=== PATIENT | male | born 1965 | race Caucasian/White ===

== ENCOUNTER 2019-06-13 11:42 | Inpatient (IN) | payer BC ==
[~2019-06-13 11:42] MED LIST: Lidocaine 1% PF 5 ML VIAL ONE; PROPOFOL 200 MG/20 ML VIAL ONE
[2019-06-13 12:23] VITALS: BMI 31.7
[2019-06-13] MEDS: Dextrose 5 % And 0.9 % NaCl 1,000 ML IV SCH ×2 (12:40→22:38)
[2019-06-13] MEDS ORDERED: Acetaminophen 500 MG TAB PO PRN (13:47)
[2019-06-13] MEDS ORDERED: Promethazine HCl 25 MG/ML VIAL IM PRN (15:53)
[2019-06-13] MEDS ORDERED: Promethazine HCl 25 MG/ML VIAL SLOW IVP PRN (15:53)
[2019-06-13] MEDS ORDERED: PACU-Morphine 4MG/ML VIAL SLOW IVP PRN (15:53)
[2019-06-13] MEDS ORDERED: Meperidine HCl/PF 25 MG/ML VIAL SLOW IVP PRN (15:53)
[2019-06-13] MEDS ORDERED: Ondansetron HCl/PF 4 MG/2 ML Vial IVP PRN (15:53)
--- NOTE | 2019-06-13 17:03 | PDOC.EVN ---
Event Note - Event Note Event Note: Clarified with Dr. Briseno. Patient's home meds are Crestor 20mg, metoprolol 50 mg q hs and amlodipine 5 mg q am.
[2019-06-13] MEDS: Pantoprazole 40 MG VIAL IVP SCH (19:56)
--- NOTE | 2019-06-13 22:20 | HP ---
CHIEF COMPLAINT: Melena. HISTORY OF PRESENT ILLNESS: This patient is a 53-year-old male with a history of kidney cancer requiring a left nephrectomy and a cryoprobe of a mass in the right kidney. The patient has subsequently been stable. He was in his usual state of health. He has been at home being fairly active around the house other than some mild generalized fatigue. Over the past week or so, he has been experiencing some black tarry stools associated with some abdominal cramping and some slight discomfort across the upper abdomen. He has had no other abdominal pain. No fevers or chills. No hematemesis. He did have one episode today of coughing with a small amount of blood-tinged sputum, but he has had no other hemoptysis or nasal or sinus congestion or drainage. REVIEW OF SYSTEMS: He has had no fevers or chills. He has been eating and drinking and voiding normally. All other systems reviewed and were negative except for those things mentioned in the history of present illness. PAST MEDICAL HISTORY: Notable for the renal cancer. PAST SURGICAL HISTORY: 1. Radical left nephrectomy. 2. Right renal mass cryoprobe. 3. Herniorrhaphy. FAMILY HISTORY: Father had some heart disease. Mother is healthy. SOCIAL HISTORY: Nonsmoker, nondrinker, nondrug user. He is . He is full code, and his would be his surrogate decision maker should that become necessary. CURRENT MEDICATIONS: The patient does not know the name of his medications. The computer system interface with the pharmacy indicates he has had a prescription for amlodipine 5 mg one p.o. daily. He also says he takes an additional blood pressure medicine at night that is more of a diuretic, and he says he is supposed to be on a cholesterol medicine, but he has not been taking it. ALLERGIES: NONE. PHYSICAL EXAMINATION: VITAL SIGNS: Temperature is 98.0, pulse 90, respirations 18, O2 saturation 96% on room air, BP 159/100. GENERAL APPEARANCE: Age-appropriate male, slightly obese, in no distress. He is awake and alert. HEENT: PERRL. He has no OP lesions. No nasal lesions. No evidence of any pharyngeal bleeding. NECK: Supple and symmetric. HEART: Regular rate and rhythm without murmurs, gallops, or rubs. LUNGS: Clear to auscultation bilaterally with good chest wall expansion and air exchange. ABDOMEN: Soft and nondistended. Positive bowel sounds, which are normoactive. No masses. No organomegaly. There is tenderness to palpation in the epigastrium and left upper abdomen with no significant guarding or rebound. EXTREMITIES: No cyanosis, clubbing, or edema. He does have some bronze discoloration over the medial lower extremities around the ankles. PSYCH: Normal affect and behavior. NEURO: No focal deficits. Cranial nerves are intact. Cognition is intact. LABORATORY DATA: White count 10.8, hemoglobin 12.1. Chemistries are normal on the CMP. IMPRESSION AND PLAN: 1. Upper gastrointestinal bleed. The patient presented to Dr. Briseno's office today with evidence of melena. He was referred to the GI Clinic. However, at that point, it was felt the patient would benefit from going forward with endoscopy and further workup, so he was placed on observation status. The case has been discussed with Dr. Russell. We will continue to hydrate and keep him n.p.o., give IV PPIs, and anticipate endoscopy this afternoon and to repeat lab values in the morning regardless of the findings to ensure stability of the hemoglobin. 2. Hypertension. We will continue with the patient's usual home medications, reach out to Dr. Briseno in order to more clearly define his current medications. 3. History of renal cancer, stable renal function at this time. Job ID: [id number]
--- NOTE | 2019-06-13 22:48 | OP ---
DATE OF PROCEDURE: 06/13/2019 PROCEDURE PERFORMED: Esophagogastroduodenoscopy with control of hemorrhage and biopsy. PREOPERATIVE DIAGNOSES: Gastrointestinal bleed with melena and anemia of acute blood loss. DESCRIPTION OF PROCEDURE: Informed consent was obtained from the patient. He was sedated with total intravenous anesthesia. The bite block was placed, and the endoscope was advanced easily to the second portion of the duodenum and retroflexion was performed in the stomach. The esophagus had grade C erosive esophagitis in the distal esophagus. This was about 50% to 75% circumferential. There was a visible red protruding vessel in the base of distal esophageal ulcer. This was cauterized with a 10-Gabonese gold probe with good hemostasis. The edge of the esophageal ulceration was biopsied. The stomach had a 3 cm hiatal hernia. There was erythematous gastritis in the antrum, which was biopsied. The pylorus and first and second portions of the duodenum were normal. IMPRESSION: 1. Grade C erosive esophagitis with a visible red protruding vessel in the base of the distal esophageal ulcer, cauterized with a 10-Gabonese gold probe with good hemostasis. 2. 3 cm hiatal hernia. 3. Antral erythematous gastritis, biopsied to rule out Helicobacter pylori. RECOMMENDATIONS: 1. Proton pump inhibitor IV. 2. If his hemoglobin is stable tomorrow without signs of overt bleeding, then we can advance his diet and change to oral proton pump inhibitor and possibly discharge home tomorrow afternoon. 3. Await histopathology. Job ID: [id number]
[2019-06-14 05:58] LABS: #Eosinphils 0.3 thou/uL (0.0-0.7); #Lymphocytes 1.5 thou/uL (1.20-3.40); #Monocytes 0.4 thou/uL (0.11-0.59); #Neutrophils 4.2 thou/uL (1.40-6.50); %Basophils 0.8 % (0.0-1.0); %Eosinophils 4.4 % (0.0-10.0); %Lymphocytes 22.9 % (21.0-51.0); %Monocytes 5.7 % (0.0-10.0); %Neutrophils 66.3 % (42.0-75.0); Hemoglobin 10.5 g/dL (14.0-18.0); Mean Corpuscular HGB CONC 31.6 g/dL (32.0-36.0); Mean Corpuscular Hemoglobin 28.3 pg (27.0-31.0); Mean Corpuscular Volume 89.6 fL (78.0-98.0); Mean Platelet Volume 7.3 fL (7.4-10.4); Platelet Count 247 thou/uL (130-400); RBC Distribution Width 14.1 % (11.5-14.5); Red Blood Cell (RBC) Count 3.72 mill/uL (4.70-6.10); White Blood Cell (WBC) Count 6.3 thou/uL (4.8-10.8)
[2019-06-14 07:05] VITALS: BP 151/85; TEMP 98.3
[2019-06-14] MEDS: Dextrose 5 % And 0.9 % NaCl 1,000 ML IV SCH ×2 (07:53→16:55)
[2019-06-14] MEDS: Pantoprazole 40 MG VIAL IVP SCH (07:53)
[2019-06-14] MEDS ORDERED: Amlodipine 5 MG TAB PO SCH (09:00)
--- NOTE | 2019-06-14 09:15 | CON ---
DATE OF CONSULTATION: The patient was seen in the office today, admitted for GI bleed. HISTORY OF PRESENT ILLNESS: Mr. Haji was seen today in Dr. Briseno's office with a complaint of black stools for 1 to 2 weeks, and had labs done, which were pending when we saw him in the office and came to the office to see me. There, he noted upper abdominal pain diffusely for about a week or a little bit more. He has had dark stools over that time as well. He had three bowel movements today, two of which were runny, one of which was just soft, all were black. In the last several days, he had 3 to 4 bowel movements a day, which is normal for him. He feels little bit fatigued, but has not had any palpitations or syncope or presyncopal episodes. He has had no nausea or vomiting. His appetite has been down. He did have a cough right when he got up this morning, coughed up a little bit of blood just once. He has not been short of breath or coughed any further. He has had no viral symptoms or URI symptoms or respiratory symptoms otherwise. His past medical history is significant for the fact he had a renal cancer removed, it looks like about 5 years ago, somewhere between 2012 and 2014 at [facility], he does not remember the exact date. Apparently, this was a complete left nephrectomy, cryoablation on the right. He had been followed by Dr. Feli Vann at [facility] with x-rays. His last CAT scan was last year, which showed no evidence of disease. He was supposed to have one this year, but with COVID he has not yet. He has taken Nexium and Zegerid in the past for reflux, but does not take it regularly, now he has Zegerid and will take maybe two times a week. He uses Tylenol occasionally. He does not use NSAIDs. He denies any weight loss or appetite change. PAST MEDICAL HISTORY: Reflux, hypertension, hyperlipidemia, renal cell carcinoma removed, complete nephrectomy in left, right cryotherapy. PAST SURGICAL HISTORY: Left nephrectomy, right kidney with cryo, umbilical hernia repair. Previous diagnostic studies, apparently he had a colonoscopy at [facility] about five years ago. He reports he did have some polyps. He reports he had an EGD which was normal. I had done EGD on him in 2006 and 2004 for reflux, which were normal. MEDICATIONS AT HOME: Lipitor, lisinopril, Zegerid. ALLERGIES: NONE KNOWN. SOCIAL HISTORY: He does not drink. Does not smoke. 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 FAMILY HISTORY: Negative for colon cancer or liver disease. REVIEW OF SYSTEMS: Positive for fatigue, abdominal discomfort, change in bowel function, diarrhea, melena, hemoptysis. PHYSICAL EXAMINATION: VITAL SIGNS: Pulse 68, blood pressure 166/88, weight 208, temperature 99.2. GENERAL: He is resting comfortably in the office. He is in no distress. HEENT: His conjunctivae and sclerae are clear. Oropharynx without lesions. NECK: Supple without any nodes. LUNGS: Clear. HEART: Regular rate and rhythm without clicks or murmurs. ABDOMEN: Soft. There is a pretty well-healed scar with no evidence of hernias in the left flank, and on the right side, there is an umbilical scar as well, no evidence of hernia. There is no evidence of inguinal adenopathy or supra or infraclavicular adenopathy. EXTREMITIES: Reveal no clubbing, cyanosis, or edema. SKIN: Warm and dry. RECTAL: Reveals melena. ASSESSMENT: 1. General abdominal pain for a week, melena for a week or a little bit more. 2. Hemoptysis today. 3. Low-grade temperature at 99. PLAN: Admission to the hospital. IV PPIs. GI evaluation for endoscopy probably in the next 24 hours. Job ID: [id number]
[2019-06-14 11:26] LABS: Hemoglobin 10.9 g/dL (14.0-18.0)
--- NOTE | 2019-06-14 16:22 | PRG ---
DATE OF SERVICE: 06/14/2019 SUBJECTIVE: Mr. Haji is tolerating a heart healthy diet well. He has no abdominal pain or nausea or vomiting. He has had no bowel movements since the endoscopy yesterday. OBJECTIVE: VITAL SIGNS: Temperature is 98.3, pulse 80, blood pressure 151/85. GENERAL: He is in no acute distress. Alert and oriented x3. LUNGS: Clear to auscultation bilaterally. HEART: Regular rate and rhythm without murmur. ABDOMEN: Soft, nontender, and nondistended. Bowel sounds are present. EXTREMITIES: No lower extremity edema. LABORATORY DATA: Hemoglobin is 10.9 today, down from 12.1 yesterday. IMPRESSION: 1. Gastrointestinal bleed secondary to grade C severe erosive esophagitis. He had a visible vessel in the base of an ulcer in the esophagus, which was cauterized. 2. Antral mild gastritis, biopsied to rule out Helicobacter pylori. RECOMMENDATIONS: 1. Proton pump inhibitor daily. 2. Avoid NSAIDs. 3. Await histopathology. 4. Follow up with Dr. Childs in the office in a month. Job ID: [id number]
--- NOTE | 2019-06-15 00:54 | DIS ---
DATE OF ADMISSION: 06/13/2019 DATE OF DISCHARGE: 06/14/2019 Mr. Haji is a 53-year-old male with a medical history of renal cell carcinoma, status post left nephrectomy, who presented for generalized fatigue and melena. He was diagnosed with grade C erosive esophagitis with a visible vessel, hiatal hernia, and antral gastritis. Gastroenterology was consulted and did an EGD in which the aforementioned findings were discovered. The esophageal protruding vessel was cauterized. The patient's hemoglobin remained stable on the day of discharge and he was feeling well, that was advanced, and the patient was discharged hemodynamically stable with no complaints. PHYSICAL EXAMINATION: VITAL SIGNS: Blood pressure was 151/85, pulse was 80, respiratory rate 20, 97% on room air, and temperature 98.3 Fahrenheit. GENERAL: Lying comfortably in bed, in no apparent distress. HEENT: Normocephalic, atraumatic. PERRL. HEART: Regular rate and rhythm. No murmurs, gallops, or rubs. LUNGS: Clear to auscultation bilaterally. No rales, rhonchi, or wheezing. No tachypnea. ABDOMEN: Soft, nondistended, nontender. Normal bowel sounds. EXTREMITIES: No edema. PSYCHIATRIC: Appropriate mood and affect. Alert and oriented x3. MEDICATIONS: New medications: Pantoprazole 40 mg p.o. b.i.d. Continued medications: 1. Amlodipine. 2. Aspirin. 3. Simvastatin. 4. Metoprolol succinate. Modified medications: None. The patient was scheduled to follow up with his primary care physician. EGD biopsy results are pending. Job ID: [id number]
== END 2019-06-14 19:12 | disposition home or self-care (01) | DRG 381 ==
LOC: OBSVTOIN 11:42 → T4-A 11:42
PROVIDERS: ADMIT Internal Medicine; ATTEND Internal Medicine
PROC: 0W3P8ZZ Control Bleeding in Gastrointestinal Tract, Via Natural or Artificial Opening Endoscopic (ICD-10-PCS; principal; 2019-06-13)
PROC: 0DB68ZX Excision of Stomach, Via Natural or Artificial Opening Endoscopic, Diagnostic (ICD-10-PCS; 2019-06-13)
DX: K22.11 Ulcer of esophagus with bleeding (principal); D62 Acute posthemorrhagic anemia; I10 Essential (primary) hypertension; E78.5 Hyperlipidemia, unspecified; K44.9 Diaphragmatic hernia without obstruction or gangrene; K29.60 Other gastritis without bleeding; Z85.528 Personal history of other malignant neoplasm of kidney; Z90.5 Acquired absence of kidney
CPT/HCPCS: 36415; 80053; 80061; 83540; 85025; C9113; J2001; J2704

== ENCOUNTER 2020-07-12 16:03 | Emergency (ER) | payer BC ==
[2020-07-12] MEDS ORDERED: Labetalol HCl 100 MG/20 ML VIAL ONE (16:35)
[2020-07-12 16:55] LABS: #Basophils 0.1 thou/uL (0.0-0.2); #Eosinphils 0.2 thou/uL (0.0-0.7); #Lymphocytes 1.5 thou/uL (1.20-3.40); #Monocytes 0.6 thou/uL (0.11-0.59); #Neutrophils 4.6 thou/uL (1.40-6.50); %Basophils 0.7 % (0.0-1.0); %Eosinophils 2.7 % (0.0-10.0); %Lymphocytes 21.6 % (21.0-51.0); %Monocytes 8.6 % (0.0-10.0); %Neutrophils 66.3 % (42.0-75.0); Hemoglobin 14.5 g/dL (14.0-18.0); Mean Corpuscular HGB CONC 32.4 g/dL (32.0-36.0); Mean Corpuscular Hemoglobin 29.2 pg (27.0-31.0); Mean Platelet Volume 7.3 fL (7.4-10.4); Platelet Count 255 thou/uL (130-400); RBC Distribution Width 13.1 % (11.5-14.5); Red Blood Cell (RBC) Count 4.97 mill/uL (4.70-6.10)
[2020-07-12 17:23] LABS: ALT (SGPT) 25 U/L (8-55); AST (SGOT) 20 U/L (5-34); Albumin 4.2 g/dL (3.5-5.0); Alkaline Phosphatase 71 U/L (40-110); Anion Gap 12 mmol/L (10-20); BUN (Urea Nitrogen) 15 mg/dL (8.4-25.7); Bilirubin, Total 0.2 mg/dL (0.2-1.2); Calc. Creatinine Clearance 0 mL/min (70-130); Calcium 9.2 mg/dL (7.8-10.44); Carbon Dioxide 26 mmol/L (22-29); Chloride 104 mmol/L (98-107); Glucose 126 mg/dL (70-105); Lipase 18 U/L (8-78); Potassium 3.8 mmol/L (3.5-5.1); Protein, Total 7.2 g/dL (6.0-8.3); Sodium 138 mmol/L (136-145)
[2020-07-12 17:45] LABS: Bacteria/HPF None Seen HPF (None Seen); Bilirubin Negative (Negative); Blood, Urine Negative (Negative); Clarity Clear (Clear); Glucose, Urine (Dipstick) Normal (Negative); Ketone, Urine Negative (Negative); Leukocyte Negative Leu/uL (Negative); Nitrite Negative (Negative); Protein, Urine (Dipstick) 70 mg/dL (Neg-Trace); RBC/HPF 0-3 HPF (0-3); Specific Gravity, Urine 1.023 (1.002-1.036); Squamous Epithelial 0-3 HPF (0-3); Urobilinogen Normal mg/dL (Less than 2); WBC/HPF 0-3 HPF (0-3); pH, Urine 6.5 (5.0-9.0)
== END 2020-07-12 18:24 | disposition home or self-care (01) ==
LOC: ERS 16:03
DX: I16.0 Hypertensive urgency (principal); I10 Essential (primary) hypertension; K21.9 Gastro-esophageal reflux disease without esophagitis; E78.5 Hyperlipidemia, unspecified; C64.9 Malignant neoplasm of unspecified kidney, except renal pelvis
CPT/HCPCS: 70450; 71045; 80053; 81003; 81015; 83690; 83880; 84484; 85025; 93005; 96374